=== PATIENT | female | born 1980 | race Caucasian/White ===

== ENCOUNTER 2017-09-27 15:56 | Emergency (ER) | payer OTHER ==
[~2017-09-27] VITALS: Ht 157.5 cm; Wt 123.7 kg
[~2017-09-27 15:56] MED LIST: LEVO200T6 PO; LISI-729 PO; PHEN30CA PO; PREG100C PO; PROC5TAB PO; XNX25 PO; ZLF/100 PO
[2017-09-27 15:58] VITALS: TEMP 36.8; Ht 157.5 cm; Wt 123.7 kg
[2017-09-27] MEDS ORDERED: SODIUM CHLORIDE 0.9% 500ML 500 ML IV STA (16:11)
[2017-09-27] MEDS ORDERED: KETOROLAC TROMETHAMINE 30 MG/ML VIAL IV STA (16:11)
[2017-09-27] MEDS ORDERED: MoRPHine SULFATE 4 MG/ML 1 ML CARP\\VIAL IV STA (16:14)
[2017-09-27 16:33] LABS: BASO % 0.2 %; BASO ABS # 0.02 K/uL (0-0.2); COMPLETE YES; EOS % 2.8 %; HEMATOCRIT 40.5 % (37-47); IG% 0.1 %; LYMPH % 28.6 %; LYMPH ABS # 2.77 K/uL (1.2-3.4); MEAN CELL VOLUME 85.6 fL (80-100); MEAN CORPUSCULAR HEMOGLOBIN 28.8 pg (25-34); MEAN CORPUSCULAR HGB CONC 33.6 g/dl (32-36); MEAN PLATELET VOLUME 10.1 fL (7.4-10.4); MONO % 4.3 %; PLATELET COUNT 303 K/uL (130-400); RED BLOOD COUNT 4.73 M/uL (4.2-5.4); WHITE BLOOD COUNT 9.67 K/uL (4.8-10.8)
[2017-09-27] MEDS ORDERED: PREG1CAP70 PO (16:34)
[2017-09-27] MEDS ORDERED: LSN25 PO (16:34)
[2017-09-27] MEDS ORDERED: CMP5 PO (16:34)
[2017-09-27 16:40] LABS: URINE APPEARANCE CLEAR (CLEAR); URINE BILIRUBIN NEG (NEG); URINE COLOR YELLOW; URINE EPITHELIAL CELL AUTO >30 /lpf (0-5); URINE NITRITE NEG (NEG); URINE SPECIFIC GRAVITY 1.028 (1.000-1.030); UROBILINOGEN NEG (NEG); ZZUR CULT IF INDIC CLEAN CATCH YES
[2017-09-27] MEDS ORDERED: PHEN37.5 PO (16:41)
[2017-09-27] MEDS ORDERED: VORT10TA12 PO (16:41)
[2017-09-27] MEDS ORDERED: MILN50TA PO (16:41)
[2017-09-27 16:46] LABS: MANUAL MICROSCOPIC REQUIRED? NO; REVIEW REQ? NO
[2017-09-27 16:55] LABS: ALT/SGPT 24 U/L (12-78); AST/SGOT 16 U/L (15-37); BLOOD UREA NITROGEN 17 mg/dl (7-18); BUN/CREATININE RATIO 20.5 (10-20); CALCIUM 9.6 mg/dl (8.5-10.1); CARBON DIOXIDE 29 mmol/L (21-32); CHLORIDE 103 mmol/L (98-107); CREATININE 0.85 mg/dl (0.60-1.20); GLUCOSE 98 mg/dl (70-99); POTASSIUM 3.6 mmol/L (3.5-5.1); SODIUM 137 mmol/L (136-145)
[2017-09-27] MEDS ORDERED: HYDR-5688 PO ×2 (16:56)
[2017-09-27 16:58] LABS: ALKALINE PHOSPHATASE 108 U/L (45-117)
[2017-09-27] MEDS ORDERED: CELE1CAP30 PO (17:15)
[2017-09-27] MEDS ORDERED: MRLP527 PO (17:15)
[2017-09-27] MEDS ORDERED: RANI150T2 PO (17:15)
[2017-09-27] MEDS ORDERED: MISCCAP80 PO (17:15)
--- NOTE | 2017-09-27 17:18 | DIAGNOSTIC IMAGING REPORT ---
THORACIC SPINE CT CT DOSE: 1375.35 mGy.cm HISTORY: Lower back pain. TECHNIQUE: Multiaxial CT images of the thoracic spine were performed and reformatted in the sagittal and coronal plane without the use of contrast. A dose lowering technique was utilized adhering to the principles of ALARA. COMPARISON: None. FINDINGS: No fractures of dictation within the thoracic spine. Mild disc space narrowing throughout the thoracic spine. Endplate osteophytes within the lower thoracic spine. Mild right-sided facet degenerative changes within the mid thoracic spine. No significant central canal or neural foraminal narrowing by CT technique. Minimal dextroscoliosis of the midthoracic spine. No pneumothorax. Paraspinal soft tissues are unremarkable. IMPRESSION: No fractures within the thoracic spine. Electronically signed by: Brock Machado M.D. 09/27/2017 5:16 PM Dictated Date/Time: 09/27/2017 5:12 PM
--- NOTE | 2017-09-27 17:36 | DIAGNOSTIC IMAGING REPORT ---
LUMBAR SPINE 5 VIEWS HISTORY: lower thoracic spine pain COMPARISON: Abdomen and pelvis CT 12/23/2015. FINDINGS: There is no fracture. No subluxation. Mild disc space narrowing and small endplate osteophytes throughout the lumbar spine. As also mild facet degenerative changes within the mid to lower lumbar spine. IMPRESSION: No fracture or subluxation within the lumbar spine. Mild degenerative disc disease throughout the lumbar spine. Electronically signed by: Brock Machado M.D. 09/27/2017 5:35 PM Dictated Date/Time: 09/27/2017 5:34 PM
[2017-09-27] MEDS ORDERED: OXYC1TAB3 PO (18:24)
[2017-09-27 18:35] VITALS: BP 149/100; PULSE 75; O2SAT 100
--- NOTE | 2017-09-27 21:37 | EMERGENCY ROOM VISIT NOTE ---
History Report prepared by Kane: Anshu Michelle Under the Supervision of: Dr. Osvaldo Mccain D.O. First contact with patient: 16:01 Chief Complaint: BACK PAIN Stated Complaint: SEVERE MID BACK PAIN/LOWER BACK PAIN History of Present Illness The patient is a 36 year old female who presents to the Emergency Room with complaints of constant mid back pain for the past three weeks which she describes as a shooting stabbing pain. She notes that the pain takes her breath away. Twisting, turning, bending, and general movement makes the pain worse, and the pain wraps around her sides. The patient notes that her last bowel movement was yesterday, she is nauseous, and she states that she is able to walk. She reports that she has a history of lower back issues, though this is different. Pt denies headache, change in vision, fevers, chest pain, nausea, vomiting, diarrhea, pain with urination, melena, weakness, numbness, recent trauma, problems with her bowels or urination, history of cancer, IV drug use. and any recent surgeries. 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 Source of History: patient Onset: three weeks ago Position: back (middle) Quality: stabbing Timing: constant Modifying Factors (Worsening): movement, other (twisting, turning, bending) Associated Symptoms: + nausea Review of Systems See HPI for pertinent positives & negatives. A total of 10 systems reviewed and were otherwise negative. Past Medical & Surgical Medical Problems: (1) Anxiety (2) Constipation (3) Depression (4) Hypertension (5) Hypothyroidism (6) IBS (irritable bowel syndrome) Family History Patient reports no known family medical history. Social History Smoking Status: Never Smoker Alcohol Use: none Marital Status: in relationship Housing Status: lives with family Occupation Status: employed Current/Historical Medications Scheduled Celecoxib (Celecoxib), 200 MG PO BID Hydrocodone/Acetaminophen 5MG/325MG ([place] 5MG/325MG), 1 TABLET PO HS Hydrocodone/Acetaminophen 5MG/325MG ([place] 5MG/325MG), 2 TABLETS PO QAM Levothyroxine Sodium (Levothyroxine Sodium), 200 MCG PO QAM Lisinopril (Lisinopril), 2.5 MG PO DAILY Milnacipran Hcl (Savella), 50 MG PO BID Phentermine Hcl (Phentermine Hcl), 37.5 MG PO DAILY Pregabalin (Lyrica), 150 MG PO BID Probiotic Product (Probiotic), 1 CAP PO QAM Ranitidine HCl (Ranitidine HCl), 150 MG PO BID Vortioxetine HBr (Trintellix), 10 MG PO DAILY Scheduled PRN Oxycodone Immediate Rel Tab (Roxicodone Ir), 5 MG PO Q6H PRN for Pain Polyethylene (Polyethylene Glycol 3350), 17 GM PO DAILY PRN for Constipation Prochlorperazine Maleate (Prochlorperazine Maleate), 5 MG PO TID PRN for Nausea Allergies Coded Allergies: Sulfa Antibiotics (Verified Allergy, Intermediate, rash,hives sob, 05/15/16) Doxycycline (Verified Allergy, Unknown, Rash and Hives, 05/15/16) Reported by PT Meloxicam (Verified Allergy, Unknown, Rash and Hives, 05/15/16) Reported by PT Ondansetron (Verified Allergy, Unknown, Nausea/Vomiting, 05/15/16) Reported by PT Penicillins (Verified Allergy, Unknown, Rash,Hives and difficulty breathing., 05/15/16) Reported by PT Physical Exam Vital Signs Date Time Temp Pulse Resp B/P (MAP) Pulse Ox O2 Delivery O2 Flow Rate FiO2 09/27/17 18:35 75 18 149/100 100 09/27/17 17:47 80 18 132/90 100 Room Air 09/27/17 15:58 36.8 101 18 157/100 99 Room Air Physical Exam GENERAL: Sitting up in bed, alert, well appearing, well nourished, no distress, non-toxic. Holding her lower thoracic region. EYE EXAM: normal conjunctiva. OROPHARYNX: no exudate, no erythema, lips, buccal mucosa, and tongue normal and mucous membranes are moist NECK: supple, no nuchal rigidity, no adenopathy, non-tender LUNGS: Clear to auscultation. Normal chest wall mechanics HEART: no murmurs, S1 normal and S2 normal ABDOMEN: abdomen soft, non-tender, normo-active bowel sounds, no masses, no rebound or guarding. BACK: Mid and bilateral paraspinal tenderness from the mid thoracic region tracking down to the lower thoracic region. Pain worsens with twisting, turning , and bending. SKIN: no rashes and no bruising UPPER EXTREMITIES: upper extremities are grossly normal. LOWER EXTREMITIES: Flexion and extension of the hip, knee, ankle, and EHL are 5/ 5 bilaterally. Able to ambulate without difficulty the length of the hallway. Patellar and Achilles reflex are 1/4 bilaterally. Gross sensations intact. NEURO EXAM: Normal sensorium, cranial nerves II-XII grossly intact, normal speech, no gross weakness of arms. Medical Decision & Procedures ER Provider Diagnostic Interpretation: Radiology results as stated below per my review and the radiologist's interpretation: THORACIC SPINE CT CT DOSE: 1375.35 mGy.cm HISTORY: Lower back pain. TECHNIQUE: Multiaxial CT images of the thoracic spine were performed and reformatted in the sagittal and coronal plane without the use of contrast. A dose lowering technique was utilized adhering to the principles of ALARA. COMPARISON: None. FINDINGS: No fractures of dictation within the thoracic spine. Mild disc space narrowing throughout the thoracic spine. Endplate osteophytes within the lower thoracic spine. Mild right-sided facet degenerative changes within the mid thoracic spine. No significant central canal or neural foraminal narrowing by CT technique. Minimal dextroscoliosis of the midthoracic spine. No pneumothorax. Paraspinal soft tissues are unremarkable. IMPRESSION: No fractures within the thoracic spine. Electronically signed by: Brock Machado M.D. 09/27/2017 5:16 PM Dictated Date/Time: 09/27/2017 5:12 PM LUMBAR SPINE 5 VIEWS HISTORY: lower thoracic spine pain COMPARISON: Abdomen and pelvis CT 12/23/2015. FINDINGS: There is no fracture. No subluxation. Mild disc space narrowing and small endplate osteophytes throughout the lumbar spine. As also mild facet degenerative changes within the mid to lower lumbar spine. IMPRESSION: No fracture or subluxation within the lumbar spine. Mild degenerative disc disease throughout the lumbar spine. Electronically signed by: Brock Machado M.D. 09/27/2017 5:35 PM Dictated Date/Time: 09/27/2017 5:34 PM Laboratory Results 09/27/17 16:20 Red Blood Count 4.73, Mean Corpuscular Volume 85.6, Mean Corpuscular Hemoglobin 28.8, Mean Corpuscular Hemoglobin Concent 33.6, Mean Platelet Volume 10.1, Neutrophils (%) (Auto) 64.0, Lymphocytes (%) (Auto) 28.6, Monocytes (%) (Auto) 4.3, Eosinophils (%) (Auto) 2.8, Basophils (%) (Auto) 0.2, Neutrophils # (Auto) 6.18, Lymphocytes # (Auto) 2.77, Monocytes # (Auto) 0.42, Eosinophils # (Auto) 0.27, Basophils # (Auto) 0.02 09/27/17 16:20 Test 09/27/17 00:00 09/27/17 16:20 Urine Color YELLOW Urine Appearance CLEAR (CLEAR) Urine pH 5.0 (4.5-7.5) Urine Specific [place] 1.028 (1.000-1.030) Urine Protein NEG (NEG) Urine Glucose (UA) NEG (NEG) Urine Ketones NEG (NEG) Urine Occult Blood NEG (NEG) Urine Nitrite NEG (NEG) Urine Bilirubin NEG (NEG) Urine Urobilinogen NEG (NEG) Urine Leukocyte Esterase SMALL (NEG) Urine WBC (Auto) 10-30 /hpf (0-5) Urine RBC (Auto) 5-10 /hpf (0-4) Urine Hyaline Casts (Auto) 5-10 /lpf (0-5) Urine Epithelial Cells (Auto) >30 /lpf (0-5) Urine Bacteria (Auto) 1+ (NEG) Urine Test NEG (NEG) White Blood Count 9.67 K/uL (4.8-10.8) Red Blood Count 4.73 M/uL (4.2-5.4) Hemoglobin 13.6 g/dL (12.0-16.0) Hematocrit 40.5 % (37-47) Mean Corpuscular Volume 85.6 fL (80-100) Mean Corpuscular Hemoglobin 28.8 pg (25-34) Mean Corpuscular Hemoglobin Concent 33.6 g/dl (32-36) Platelet Count 303 K/uL (130-400) Mean Platelet Volume 10.1 fL (7.4-10.4) Neutrophils (%) (Auto) 64.0 % Lymphocytes (%) (Auto) 28.6 % Monocytes (%) (Auto) 4.3 % Eosinophils (%) (Auto) 2.8 % Basophils (%) (Auto) 0.2 % Neutrophils # (Auto) 6.18 K/uL (1.4-6.5) Lymphocytes # (Auto) 2.77 K/uL (1.2-3.4) Monocytes # (Auto) 0.42 K/uL (0.11-0.59) Eosinophils # (Auto) 0.27 K/uL (0-0.5) Basophils # (Auto) 0.02 K/uL (0-0.2) RDW Standard Deviation 46.1 fL (36.4-46.3) RDW Coefficient of Variation 14.8 % (11.5-14.5) Immature Granulocyte % (Auto) 0.1 % Immature Granulocyte # (Auto) 0.01 K/uL (0.00-0.02) Anion Gap 5.0 mmol/L (3-11) Est Creatinine Clear Calc Drug Dose 112.7 ml/min Estimated GFR () 100.7 Estimated GFR (Non- 86.9 BUN/Creatinine Ratio 20.5 (10-20) Calcium Level 9.6 mg/dl (8.5-10.1) Total Bilirubin 0.3 mg/dl (0.2-1) Direct Bilirubin < 0.1 mg/dl (0-0.2) Aspartate Amino Transf (AST/SGOT) 16 U/L (15-37) Alanine Aminotransferase (ALT/SGPT) 24 U/L (12-78) Alkaline Phosphatase 108 U/L (45-117) Total Protein 9.0 gm/dl (6.4-8.2) Albumin 3.9 gm/dl (3.4-5.0) Lipase 124 U/L (73-393) Laboratory results per my review. Medications Administered Medications (Trade) Dose Ordered Sig/Tanisha Route Start Time Stop Time Status Last Admin Dose Admin Sodium Chloride 500 ml @ 999 mls/hr Q31M STAT IV 09/27/17 16:11 09/27/17 16:41 DC 09/27/17 16:29 999 MLS/HR Ketorolac Tromethamine (Toradol Inj) 30 mg NOW STAT IV 09/27/17 16:11 09/27/17 16:13 DC 09/27/17 16:30 30 MG Morphine Sulfate (MoRPHine SULFATE INJ) 4 mg NOW STAT IV 09/27/17 16:14 09/27/17 16:15 DC 09/27/17 17:53 4 MG ED Course ED COURSE: Vital signs were reviewed and showed tachycardia and hypertension The patients medical record was reviewed The above diagnostic studies were performed and reviewed. ED treatments and interventions as stated above. 1601: The patient was evaluated in room C6. A complete history and physical examination was performed. 1611: Toradol 30mg IV, Sodium Chloride 500 ml @ 999 mls/hr IV 1614: Morphine Sulfate 4mg IV 1813: Upon reevaluation, the patient is feeling better.I discussed my findings with the patient and she understands and agrees with the treatment plan. Based on the patients age, coexisting illnesses, exam and lab findings the decision to treat as an outpatient was made. The patient remained stable while under my care. The patient appeared well at the time of discharge. Medical Decision Differential diagnoses includes but is not limited to lumbar radiculopathy, muscle strain, facture, cauda equina, mass, and disc herniation. Patient is a 36-year-old female who presents to ER for pain in the lower back. It is located in the lower thoracic region tracking of the midthoracic. Pain is worse with twisting turning bending. Patient is completely neurologically intact. No signs cauda equina. CBC all BMP, LFTs, bilirubin lipase is unremarkable. UA was contaminated with multiple epithelial cells. was negative. Patient family were updated at bedside. Patient was given IV morphine and Toradol. She was discharged follow-up with PCP. Discussed with Pt concerning signs and symptoms to watch out for. Pt was instructed to follow up with their PCP and discussed with the patient their option to return to the ED at anytime for persistent or worsening symptoms. The appropriate anticipatory guidance and out-patient management, including indications for return to the emergency department, were explained at length to the patient and understood. [place] Drug Monitoring Program Search Results: patient reviewed within database, no issues identified Medication Reconcilliation Current Medication List: was personally reviewed by me Blood Pressure Screening Patient's blood pressure: Elevated blood pressure Blood pressure disposition: Referred to PCP Impression Primary Impression: Musculoskeletal back pain Scribe Attestation The scribe's documentation has been prepared under my direction and personally reviewed by me in its entirety. I confirm that the note above accurately reflects all work, treatment, procedures, and medical decision making performed by me. Departure Information Dispostion Home / Self-Care Prescriptions Oxycodone Immediate Rel Tab (ROXICODONE IR) 5 Mg Tab 5 MG PO Q6H Y for Pain, #10 TAB Prov: Osvaldo Mccain, DO 09/27/17 Referrals Ji Almeida M.D. (MEDICAL) (PCP) Forms HOME CARE DOCUMENTATION FORM, IMPORTANT VISIT INFORMATION Patient Instructions Back Pain - [facility], [facility] Additional Instructions Please follow up with your primary care doctor with in the next 24 hours. Any worsening of your symptoms, please return to the ED immediately. This includes any fevers greater than 100.4, worsening pain, chest pain, shortness breath, persistent nausea, vomiting, weakness or numbness in arms or legs, unable to urinate, unable to move her bowels, unable to eat or drink, or any other concerning signs or symptoms from your standpoint. Please take Colace 100 mg twice a day in combination with Senokot's 10 mg daily if you are taking OxyIR. You were given medications during this visit that will inhibit your ability to drive, operate machinery and work. Please do NOT drive, operate machinery or work for the next 12hrs. You were also given a prescription for a narcotic. While taking this medication you should also not drive, operate machinery and or work.
== END 2017-09-27 18:38 | disposition home or self-care (01) ==
LOC: C.EDB 15:57 → C.EDC 18:38
DX: M54.6 Pain in thoracic spine (principal); M54.5 Low back pain; F32.9 Major depressive disorder, single episode, unspecified; I10 Essential (primary) hypertension; E03.9 Hypothyroidism, unspecified; K58.9 Irritable bowel syndrome, unspecified; Z79.1 Long term (current) use of non-steroidal anti-inflammatories (NSAID); Z79.891 Long term (current) use of opiate analgesic

== ENCOUNTER → 2017-10-15 | Day surgery (SDC) | payer OTHER ==
[2017-10-09 15:04] VITALS: Ht 157.5 cm; Wt 125.0 kg
[~2017-10-15] VITALS: Ht 157.5 cm; Wt 125.0 kg
[~2017-10-15] MED LIST changes: +ATROPINE SULFATE 0.1 MG/ML 5ML SYR IV PRN; +BUPIVACAINE 0.5 % 5 MG/1 ML PF 10ML VIAL ONE; +CELE1CAP30 PO; +CMP5 PO; +DEXAMETHASONE SOD INJ 4 MG/ML VIAL ONE; +EpHEDrine SULFATE INJ 50 MG/ML AMP IV PRN; +FENTANYL CITRATE INJ 50 MCG/1 ML 2 ML VIAL ONE; +HYDR-5688 PO; +LACTATED RINGER'S 1000ML 1,000 ML IV SCH; +LIDO 2%/EPINEPHRINE 1:100000 20 ML VIAL INFIL ONE; +LIDOCAINE HCL 2% 2 ML VIAL (20MG/ML) ONE; -LISI-729 PO; +LSN25 PO; +MIDAZOLAM HCL 1 MG/ML 2ML VIAL ONE; +MILN50TA PO; +MISCCAP80 PO; +MRLP527 PO; +NURSING VERBAL MED ORDER ONE; +ONDANSETRON INJ 2 MG/ML 2 ML VIAL ONE; +OXYC1TAB3 PO; -PHEN30CA PO; -PREG100C PO; +PREG1CAP70 PO; -PROC5TAB PO; +PROPOFOL IV EMULSION 10 MG/ML 20 ML VIAL IV ONE; +RANI150T2 PO; +VORT10TA12 PO; -XNX25 PO; -ZLF/100 PO
--- NOTE | 2017-10-15 09:10 | History & Physical Bridge - [place] ---
H&P Re-Evaluation Bridge Note: I have examined the patient, reviewed the History & Physical and in the interval since the performance of the History & Physical I have noted the following changes of clinical significance: No changes noted
--- NOTE | 2017-10-15 10:01 | [facility] Post Operative Brief Note ---
Immediate Operative Summary Operative Date Oct 15, 2017. Pre-Operative Diagnosis Bilateral Plantar Fasciitis Post-Operative Diagnosis Same Procedure(s) Performed Bilateral Feet Planter Fasciectomy Surgeon Dr. Reddy Boat Garnisher Surgeon(s) None Estimated Blood Loss 10ML Findings consistent w preop dx Specimens None Anesthesia local with MAC Complication(s) None Disposition Recovery Room / PACU VSS and NVSI to b/l LE
[2017-10-15 10:03] VITALS: TEMP 36.5
--- NOTE | 2017-10-15 10:07 | Discharge Instructions ---
Discharge Instructions Date of Service Oct 15, 2017. Visit Reason for Visit: Bilateral Feet Plantar Fasciitis Discharge Discharge Diagnosis / Problem: bilateral plantar fasciitis Discharge Goals Goal(s): Improve function Medications Stopped Medications Name(s): celebrex stopped 6 days ago Activity Recommendations Activity Limitations: resume your previous activity Lifting Limitations: none Exercise/Sports Limitations: none Shower/Bathe: keep incision dry Weightbearing Status: Left weightbearing (as tolerated), Right weightbearing ( as tolerated) No driving until fu in office Anesthesia . Post Anesthesia Instructions: If you have had General Anesthesia or IV Sedation: * Do not drive today. * Resume driving when surgeon permits. * Do not make important decisions or sign legal documents today. * Call surgeon for: 1. Temperature elevations greater than 101 degrees F. 2. Uncontrollable pain. 3. Excessive bleeding. 4. Persistent nausea and vomiting. 5. Medication intolerance (nausea, vomiting or rash). * For nausea and vomiting use only clear liquids such as: tea, soda, bouillon until nausea subsides, then gradually increase diet as tolerated. * If you have any concerns or questions, call your surgeon's office. If physician is unavailable and it is an emergency, call 911 or go to the nearest emergency room. . Diet Recommendations Recommended Home Diet: no limitations, resume previous diet Procedures Procedures Performed: Bilateral Feet Planter Fasciectomy Pending Studies Studies pending at discharge: no Medical Emergencies . Who to Call and When: Medical Emergencies: If at any time you feel your situation is an emergency, please call 911 immediately. . Non-Emergent Contact Non-Emergency issues call your: Surgeon Call Non-Emergent contact if: you have a fever, temperature is above 101.5, your pain is not controlled, wound has increased drainage, wound has increased redness, wound has increased pain . Past History Medical & Surgical History: (1) Kidney stone (2) Renal colic (3) Nausea vomiting and diarrhea (4) Musculoskeletal back pain (5) Hypertension (6) Hypothyroidism (7) IBS (irritable bowel syndrome) (8) Constipation (9) Depression (10) Anxiety . "Provider Documentation" section prepared by Tc Reddy. .
--- NOTE | 2017-10-15 10:55 | Anesthesia Progress Nt - [facility] ---
Anesthesia Post Op Note Date & Time Oct 15, 2017 at 10:55 Vital Signs Pain Intensity: 0 Vital Signs Past 12 Hours Date Time Temp Pulse Resp B/P (MAP) Pulse Ox O2 Delivery O2 Flow Rate FiO2 10/15/17 10:03 36.5 78 16 111/75 (87) 98 Room Air 10/15/17 08:00 36.8 87 16 99 Room Air Notes Mental Status: alert / awake / arousable, participated in evaluation Pt Amnestic to Procedure: Yes Nausea / Vomiting: adequately controlled Pain: adequately controlled Airway Patency, RR, SpO2: stable & adequate BP & HR: stable & adequate Hydration State: stable & adequate Anesthetic Complications: no major complications apparent
--- NOTE | 2017-10-15 10:58 | [facility] Operative Report ---
Operative Report Operative Date Oct 15, 2017. Pre-Operative Diagnosis Bilateral Plantar Fasciitis Post-Operative Diagnosis Same Procedure(s) Performed Bilateral plantar fascia release Surgeon Dr. Reddy Lab Rep Surgeon(s) None Estimated Blood Loss 10ML Findings consistent w/ preoperative dx Specimens None Anesthesia MAC w/ local field block Complication(s) None Disposition Recovery Room / PACU Description of Procedure Patient has failed outpatinet conservative therapy for the bilateral plantar fasciitis by one of my partners. Please see last clinic note for full HPI. All RBCA were explained and she elects to proceed. Patient was taken from the preoperative holding area to the operating room and placed on the table in the normal supine position. The bilateral feet and ankles were then identified. After induction of MAC anesthesia a local field block was performed to the bilateral medial calcaneal tubercle. 2% lidocaine with epinephrine was used to total 20 cc were used, 10 cc in each foot. At this time the bilateral lower extremities were prepped and draped in the normal sterile flap fashion using ChloraPrep. Attention was directed to the right medial calcaneal tubercle where an incision was made and drawn over the medial calcaneal tubercle. Dissection was carried down to the level of the medial calcaneal tubercle which is identified. A hemostat and periosteal elevator were used to free up the medial band of plantar fascial tissue. After identification band was incised with a #15 blade. Care was taken to avoid all neurovascular structures. Adequate release was noted in check with dorsiflexion of the hallux. The incision site was then flushed with copious amounts of normal sterile saline. Site was closed with 4-0 nylon. Attention was directed to the left medial calcaneal tubercle where an incision was made and drawn over the medial calcaneal tubercle. Dissection was carried down to the level of the medial calcaneal tubercle which is identified. A hemostat and periosteal elevator were used to free up the medial band of plantar fascial tissue. After identification band was incised with a #15 blade. Care was taken to avoid all neurovascular structures. Adequate release was noted in check with dorsiflexion of the hallux. The incision site was then flushed with copious amounts of normal sterile saline. Site was closed with 4-0 nylon. Patient tolerated the anesthesia and procedure well. Patient left the operating room with vital signs stable and neurovascular status intact to the bilateral lower extremity. I attest to the content of the Intraoperative Record and any orders documented therein. Any exceptions are noted below.
[2017-10-15 11:15] VITALS: BP 118/77; PULSE 86; O2SAT 99
== END | disposition home or self-care (01) ==
LOC: X.SURG 07:34
PROVIDERS: ATTEND Podiatrist
DX: M72.2 Plantar fascial fibromatosis (principal); E66.9 Obesity, unspecified; I10 Essential (primary) hypertension; G47.33 Obstructive sleep apnea (adult) (pediatric); K21.9 Gastro-esophageal reflux disease without esophagitis; E03.9 Hypothyroidism, unspecified; Z88.0 Allergy status to penicillin; Z88.2 Allergy status to sulfonamides; Z82.49 Family history of ischemic heart disease and other diseases of the circulatory system; Z80.3 Family history of malignant neoplasm of breast; Z80.1 Family history of malignant neoplasm of trachea, bronchus and lung; Z68.42 Body mass index [BMI] 45.0-49.9, adult; Z90.89 Acquired absence of other organs

== ENCOUNTER 2017-12-17 17:53 | Inpatient (IN) | payer OTHER ==
[~2017-12-17] VITALS: Ht 157.5 cm; Wt 125.4 kg
[~2017-12-17 17:53] MED LIST changes: -ALBUT/IPRATROP 3MG/0.5MG NEB 3 ML VIAL INH SCH; -ALBUTEROL HFA INHALER 8.5 GM INH ONE; -ALPR0.25 PO; -AZITTAB PO; -LIDOCAINE HCL 2% 2 ML VIAL (20MG/ML) ONE; -OMEP20TA PO; -PROPOFOL IV EMULSION 10 MG/ML 20 ML VIAL IV ONE; -SODIUM CHLORIDE 0.9% 500ML 500 ML IV ONE
[2017-12-17] MEDS ORDERED: ONDANSETRON INJ 2 MG/ML 2 ML VIAL IV STA ×2 (17:57→19:36)
[2017-12-17] MEDS ORDERED: SODIUM CHLORIDE 0.9% 1000ML 1,000 ML IV STA ×2 (17:57→19:36)
[2017-12-17] MEDS ORDERED: ALBUTEROL 0.5% NEB SOLN 2.5 MG/0.5 ML VIAL INH STA (17:57)
--- NOTE | 2017-12-17 18:20 | DIAGNOSTIC IMAGING REPORT ---
SINGLE VIEW CHEST CLINICAL HISTORY: Atypical chest pain. FINDINGS: An AP, portable, upright chest radiograph is obtained. No prior studies are available for comparison at the time of dictation. The examination is degraded by portable technique and patient rotation. The cardiomediastinal silhouette is unremarkable. The lungs and pleural spaces are clear. No pneumothorax is seen. The bony thorax is grossly intact. IMPRESSION: No active disease in the chest. Electronically signed by: Filippo Patterson M.D. 12/17/2017 6:19 PM Dictated Date/Time: 12/17/2017 6:19 PM
[2017-12-17 18:34] LABS: BASO % 0.2 %; BASO ABS # 0.02 K/uL (0-0.2); EOS % 0.1 %; EOS ABS # 0.01 K/uL (0-0.5); HEMATOCRIT 38.8 % (37-47); IG# 0.02 K/uL (0.00-0.02); LYMPH % 5.7 %; LYMPH ABS # 0.75 K/uL (1.2-3.4); MEAN CELL VOLUME 85.7 fL (80-100); MEAN CORPUSCULAR HEMOGLOBIN 28.7 pg (25-34); MEAN CORPUSCULAR HGB CONC 33.5 g/dl (32-36); MEAN PLATELET VOLUME 10.1 fL (7.4-10.4); MONO % 2.9 %; MONO ABS # 0.38 K/uL (0.11-0.59); NEUT % 90.9 %; NEUT ABS # 11.88 K/uL (1.4-6.5); PLATELET COUNT 257 K/uL (130-400); RED CELL DISTRIBUTION WIDTH CV 15.2 % (11.5-14.5); RED CELL DISTRIBUTION WIDTH SD 47.6 fL (36.4-46.3); WHITE BLOOD COUNT 13.06 K/uL (4.8-10.8)
[2017-12-17 18:52] LABS: BLOOD UREA NITROGEN 15 mg/dl (7-18); CALCIUM 9.1 mg/dl (8.5-10.1); CARBON DIOXIDE 23 mmol/L (21-32); GLUCOSE 202 mg/dl (70-99); POTASSIUM 4.1 mmol/L (3.5-5.1); SODIUM 136 mmol/L (136-145)
[2017-12-17 18:57] LABS: CKMB < 0.5 ng/ml (0.5-3.6)
[2017-12-17] MEDS ORDERED: MoRPHine SULFATE 10 MG/ML CARP/VIAL IV STA (19:36)
[2017-12-17] MEDS ORDERED: ACETAMINOPHEN 325 MG TAB PO PRN (21:00)
[2017-12-17] MEDS ORDERED: MAGNESIUM HYDROXIDE SUSP 30 ML UDC PO PRN (21:00)
[2017-12-17 21:08] LABS: ALBUMIN 3.4 gm/dl (3.4-5.0); ALKALINE PHOSPHATASE 93 U/L (45-117); ALT/SGPT 28 U/L (12-78); AST/SGOT 17 U/L (15-37); LIPASE 105 U/L (73-393); TOTAL PROTEIN 8.1 gm/dl (6.4-8.2)
[2017-12-17] MEDS ORDERED: AZTREONAM 2000 MG in DEXTROSE 5% 100 ML IV STA (21:09)
[2017-12-17] MEDS ORDERED: VANCOMYCIN INJ 2,750 MG in SODIUM CHLORIDE 0.9% 500ML 500 ML IV STA (21:09)
[2017-12-17] MEDS ORDERED: ACETAMINOPHEN 325 MG TAB ONE (21:13)
[2017-12-17] MEDS ORDERED: OPTIRAY 320 IV PRN (21:15)
[2017-12-17] MEDS ORDERED: ALPR0.25 PO (21:33)
[2017-12-17] MEDS ORDERED: ALPRAZOLAM 0.25 MG TAB PO PRN (21:45)
[2017-12-17] MEDS ORDERED: PROCHLORPERAZINE MALEATE 5 MG TAB PO PRN (21:45)
[2017-12-17] MEDS ORDERED: HYDROCODONE/ACETAMIN 5/325MG TAB PO SCH (21:45)
[2017-12-17] MEDS ORDERED: VANCOMYCIN CONSULT ACTIVE PRN (21:47)
--- NOTE | 2017-12-17 21:47 | History and Physical ---
History & Physical Date & Time of Service: Dec 17, 2017 at 21:35 Chief Complaint: Doug Pain, Coughing, Fever Primary Care Physician: Ji Almeida M.D. (MEDICAL) History of Present Illness Source: patient, clinic records, hospital records The patient is a 37-year-old female who presents to the emergency room via EMS with complaints of constant chest pain and abdominal pain beginning earlier today following an upper endoscopy. The patient states that after the procedure she began to cough uncontrollably and was unable to speak. She was given a DuoNeb treatment with inhalers and sent home. When she got home she continued to cough and developed chest pain trouble breathing and abdominal pain. She describes her chest pain as a soreness. She reports vomiting one time prior to arrival to the ER. Vomitus was described as mucousy without blood. She has no history of asthma or COPD. The endoscopy was performed for chronic bloating and abdominal pain. She reports her abdominal pain and chest pain are improved since the breathing treatment. She does report a headache likely secondary to the excessive coughing. The coughing and difficulty breathing have improved. She is not in respiratory distress at this time. She does report fevers and chills that began shortly after arriving home today. She reports that when she got home her shortness of breath became worse and her chest pain felt tighter wrapping around her shoulder blades. She denies a history of blood clot but does report a history of multiple spontaneous abortions. Review of system reveals chronic constipation. She denies diarrhea or blood per rectum. She reports irregular menstruation with last menstrual period in October 2017. She denies any vaginal discharge or urinary tract infection symptoms such as dysuria urgency or flank pain. Prior to the procedure she was in her normal state of health. Past Medical/Surgical History Medical Problems: (1) Anxiety Status: Chronic (2) Aldana esophagus Status: Chronic (3) Constipation Status: Chronic (4) Depression Status: Chronic (5) Diastolic dysfunction Status: Chronic (6) Fibromyalgia Status: Chronic (7) HTN (hypertension) Status: Chronic (8) Hyperhidrosis Status: Chronic (9) Hypertension Status: Chronic (10) Hypothyroidism Status: Chronic (11) IBS (irritable bowel syndrome) Status: Chronic (12) Low back pain Status: Chronic (13) Lupus Status: Chronic (14) Menometrorrhagia Status: Chronic (15) JOHNSON (obstructive sleep apnea) Permanent Comment: intolerant of CPAP mask Status: Chronic (16) PCOS (polycystic ovarian syndrome) Status: Chronic (17) Plantar fascial fibromatosis of both feet Status: Chronic (18) Ureteral calculus Status: Chronic Surgical Problems: (1) S/P bilateral breast reduction Status: Chronic (2) S/P D&C (status post dilation and curettage) Status: Chronic (3) S/P T&A (status post tonsillectomy and adenoidectomy) Status: Chronic (4) Status post third molar tooth extraction Status: Chronic Family History Cancer Diabetes mellitus FH: cancer FH: lung disease Heart disease Hypertension Social History Smoking Status: Never Smoker Smokeless Tobacco Use: No Alcohol Use: socially Drug Use: none Marital Status: , in relationship Housing status: lives with significant other Occupational Status: unemployed Immunizations History of Influenza Vaccine: Unknown History of Tetanus Vaccine?: Yes Tetanus Immunization Date: Aug 11, 2009 History of Pneumococcal: Unknown History of Hepatitis B Vaccine: Unknown Allergies Coded Allergies: Sulfa Antibiotics (Verified Allergy, Intermediate, rash,hives sob, 12/12/17) Vancomycin (Verified Allergy, Intermediate, rash, 12/18/17) Doxycycline (Verified Allergy, Unknown, Rash and Hives, 12/12/17) Reported by PT Meloxicam (Verified Allergy, Unknown, Rash and Hives, 12/12/17) Reported by PT Ondansetron (Verified Allergy, Unknown, Nausea/Vomiting, 12/12/17) Reported by PT Penicillins (Verified Allergy, Unknown, Rash,Hives and difficulty breathing., 12/12/17) Reported by PT Home Medications Scheduled Hydrocodone/Acetaminophen 5MG/325MG (Edgar 5MG/325MG), 1 TABLET PO HS Hydrocodone/Acetaminophen 5MG/325MG (Edgar 5MG/325MG), 2 TABLETS PO QAM Levothyroxine Sodium (Levothyroxine Sodium), 200 MCG PO QAM Lisinopril (Lisinopril), 2.5 MG PO QAM Milnacipran Hcl (Savella), 50 MG PO BID Pregabalin (Lyrica), 150 MG PO BID Probiotic Product (Probiotic), 1 CAP PO QAM Ranitidine HCl (Ranitidine HCl), 150 MG PO BID Vortioxetine HBr (Trintellix), 2 TAB PO QAM Scheduled PRN Alprazolam (Xanax), 1 TAB PO TID PRN for Anxiety/Agitation Polyethylene (Polyethylene Glycol 3350), 17 GM PO DAILY PRN for Constipation Prochlorperazine Maleate (Prochlorperazine Maleate), 5 MG PO TID PRN for Nausea Review of Systems At least ten systems were reviewed and negative except as indicated in HPI. Physical Exam Vital Signs Date Time Temp Pulse Resp B/P (MAP) Pulse Ox O2 Delivery O2 Flow Rate FiO2 12/17/17 19:33 37.9 130 18 134/84 94 Room Air 12/17/17 18:56 37.7 123 18 138/85 95 Room Air 12/17/17 18:11 139 12/17/17 17:56 Room Air 12/17/17 17:56 38.1 140 22 156/100 98 Room Air General Appearance: no apparent distress, + obese, + pertinent finding ( diaphoretic and flushed, no rash) Head: normocephalic, atraumatic Eyes: normal inspection, PERRL, sclerae normal ENT: normal ENT inspection, pharynx normal, + pertinent finding (cerumen bilaterally prevented visualization of TMs. 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, no motor/sensory deficits, alert, normal mood/affect, oriented x 3 Skin: normal color, warm/dry, no rash Diagnostics Laboratory Results 12/17/17 18:11 Red Blood Count 4.53, Mean Corpuscular Volume 85.7, Mean Corpuscular Hemoglobin 28.7, Mean Corpuscular Hemoglobin Concent 33.5, Mean Platelet Volume 10.1, Neutrophils (%) (Auto) 90.9, Lymphocytes (%) (Auto) 5.7, Monocytes (%) (Auto) 2.9, Eosinophils (%) (Auto) 0.1, Basophils (%) (Auto) 0.2, Neutrophils # (Auto) 11.88, Lymphocytes # (Auto) 0.75, Monocytes # (Auto) 0.38, Eosinophils # (Auto) 0.01, Basophils # (Auto) 0.02 12/17/17 18:11 Test 12/17/17 18:11 12/17/17 20:45 12/17/17 21:16 White Blood Count 13.06 K/uL (4.8-10.8) Red Blood Count 4.53 M/uL (4.2-5.4) Hemoglobin 13.0 g/dL (12.0-16.0) Hematocrit 38.8 % (37-47) Mean Corpuscular Volume 85.7 fL (80-100) Mean Corpuscular Hemoglobin 28.7 pg (25-34) Mean Corpuscular Hemoglobin Concent 33.5 g/dl (32-36) Platelet Count 257 K/uL (130-400) Mean Platelet Volume 10.1 fL (7.4-10.4) Neutrophils (%) (Auto) 90.9 % Lymphocytes (%) (Auto) 5.7 % Monocytes (%) (Auto) 2.9 % Eosinophils (%) (Auto) 0.1 % Basophils (%) (Auto) 0.2 % Neutrophils # (Auto) 11.88 K/uL (1.4-6.5) Lymphocytes # (Auto) 0.75 K/uL (1.2-3.4) Monocytes # (Auto) 0.38 K/uL (0.11-0.59) Eosinophils # (Auto) 0.01 K/uL (0-0.5) Basophils # (Auto) 0.02 K/uL (0-0.2) RDW Standard Deviation 47.6 fL (36.4-46.3) RDW Coefficient of Variation 15.2 % (11.5-14.5) Immature Granulocyte % (Auto) 0.2 % Immature Granulocyte # (Auto) 0.02 K/uL (0.00-0.02) Anion Gap 8.0 mmol/L (3-11) Est Creatinine Clear Calc Drug Dose 95.5 ml/min Estimated GFR () 82.2 Estimated GFR (Non- 70.9 BUN/Creatinine Ratio 15.2 (10-20) Calcium Level 9.1 mg/dl (8.5-10.1) Total Bilirubin 0.3 mg/dl (0.2-1) Direct Bilirubin < 0.1 mg/dl (0-0.2) Aspartate Amino Transf (AST/SGOT) 17 U/L (15-37) Alanine Aminotransferase (ALT/SGPT) 28 U/L (12-78) Alkaline Phosphatase 93 U/L (45-117) Total Creatine Kinase 58 U/L (26-192) Creatine Kinase MB < 0.5 ng/ml (0.5-3.6) Creatine Kinase MB Ratio (0-3.0) Total Protein 8.1 gm/dl (6.4-8.2) Albumin 3.4 gm/dl (3.4-5.0) Lipase 105 U/L (73-393) Urine Test NEG (NEG) Prothrombin Time 10.1 SECONDS (9.0-12.0) Prothromb Time International Ratio 1.0 (0.9-1.1) Date/Time Source Procedure Growth Status 12/17/17 21:25 Blood Blood Culture Pending Received 12/17/17 20:45 Urine , Clean Catch Urine Culture Pending Received Results Past 24 Hours Test 12/17/17 18:11 12/17/17 20:45 12/17/17 21:16 Range/Units White Blood Count 13.06 4.8-10.8 K/uL Red Blood Count 4.53 4.2-5.4 M/uL Hemoglobin 13.0 12.0-16.0 g/dL Hematocrit 38.8 37-47 % Mean Corpuscular Volume 85.7 80-100 fL Mean Corpuscular Hemoglobin 28.7 25-34 pg Mean Corpuscular Hemoglobin Concent 33.5 32-36 g/dl Platelet Count 257 130-400 K/uL Mean Platelet Volume 10.1 7.4-10.4 fL Neutrophils (%) (Auto) 90.9 % Lymphocytes (%) (Auto) 5.7 % Monocytes (%) (Auto) 2.9 % Eosinophils (%) (Auto) 0.1 % Basophils (%) (Auto) 0.2 % Neutrophils # (Auto) 11.88 1.4-6.5 K/uL Lymphocytes # (Auto) 0.75 1.2-3.4 K/uL Monocytes # (Auto) 0.38 0.11-0.59 K/uL Eosinophils # (Auto) 0.01 0-0.5 K/uL Basophils # (Auto) 0.02 0-0.2 K/uL RDW Standard Deviation 47.6 36.4-46.3 fL RDW Coefficient of Variation 15.2 11.5-14.5 % Immature Granulocyte % (Auto) 0.2 % Immature Granulocyte # (Auto) 0.02 0.00-0.02 K/uL Sodium Level 136 136-145 mmol/L Potassium Level 4.1 3.5-5.1 mmol/L Chloride Level 105 98-107 mmol/L Carbon Dioxide Level 23 21-32 mmol/L Anion Gap 8.0 3-11 mmol/L Blood Urea Nitrogen 15 7-18 mg/dl Creatinine 1.00 0.60-1.20 mg/dl Est Creatinine Clear Calc Drug Dose 95.5 ml/min Estimated GFR () 82.2 Estimated GFR (Non- 70.9 BUN/Creatinine Ratio 15.2 10-20 Random Glucose 202 70-99 mg/dl Calcium Level 9.1 8.5-10.1 mg/dl Total Bilirubin 0.3 0.2-1 mg/dl Direct Bilirubin < 0.1 0-0.2 mg/dl Aspartate Amino Transf (AST/SGOT) 17 15-37 U/L Alanine Aminotransferase (ALT/SGPT) 28 12-78 U/L Alkaline Phosphatase 93 45-117 U/L Total Creatine Kinase 58 26-192 U/L Creatine Kinase MB < 0.5 0.5-3.6 ng/ml Creatine Kinase MB Ratio 0-3.0 Troponin I < 0.015 0-0.045 ng/ml Total Protein 8.1 6.4-8.2 gm/dl Albumin 3.4 3.4-5.0 gm/dl Lipase 105 73-393 U/L Urine Test NEG NEG Prothrombin Time 10.1 9.0-12.0 SECONDS Prothromb Time International Ratio 1.0 0.9-1.1 Microbiology Results 12/17/17 Blood Culture, Received Pending 12/17/17 Blood Culture, Ordered Pending 12/17/17 Urine Culture, Received Pending Diagnostic Radiology SINGLE VIEW CHEST CLINICAL HISTORY: Atypical chest pain. FINDINGS: An AP, portable, upright chest radiograph is obtained. No prior studies are available for comparison at the time of dictation. The examination is degraded by portable technique and patient rotation. The cardiomediastinal silhouette is unremarkable. The lungs and pleural spaces are clear. No pneumothorax is seen. The bony thorax is grossly intact. IMPRESSION: No active disease in the chest. EKG ST 125 Impression Assessment and Plan 37-year-old female presents with acute onset fever chills tachycardia chest pain and shortness of breath status post upper endoscopy earlier today. 1. Sepsis-fever, tachycardia, and white count present. Patient is ill- appearing. Differential diagnosis includes but is not limited to allergic reaction to Keflex given earlier today with known history of cephalosporin allergy, possible aspiration pneumonia, pulmonary embolism, viral infection such as flu, other infection such as UTI, or complication such as per microperforation from procedure earlier today. Blood cultures are pending, lactate pending. Will cover with broad-spectrum antibiotics to include vancomycin and aztreonam. CT chest to rule out PE. Flu PCR. Continue IV fluids overnight. Urinalysis. Consult GI. 2. Chronic pain and fibromyalgia-continue Edgar per home regimen. 3. Anxiety continue Savella, Xanax, Lyrica, Trintellix DVT proph- Lovenox Full Code Dispo-tele ADDENDUM: Overnight patient had allergic reaction to vancomycin in the form of the rash without hives. Benadryl was given and vancomycin was added to allergy list. Daptomycin is a replacement alternative for gram-positive coverage. Continuing aztreonam for now with consideration of dapto per primary team in the morning. Desirae De Leon DO [facility] hospitalist Resuscitation Status VTE Prophylaxis Will order VTE Prophylaxis: Yes
--- NOTE | 2017-12-17 21:58 | DIAGNOSTIC IMAGING REPORT ---
CT ANGIOGRAM OF THE CHEST CLINICAL HISTORY: Atypical chest pain. COMPARISON STUDY: Chest x-ray dated 12/17/2017 TECHNIQUE: Following the IV administration of 103 cc of Optiray 320, CT angiogram of the chest was performed from the upper abdomen to the thoracic inlet utilizing the pulmonary embolus protocol. Images are reviewed in the axial, sagittal, and coronal planes. 3-D MIPS images are created and assessed. IV contrast was administered without complication. A dose lowering technique was utilized adhering to the principles of ALARA. The examination is significantly degraded by motion artifact. CT DOSE: 649.32 mGy.cm FINDINGS: Thyroid: Atrophic. Thoracic aorta: The thoracic aorta is normal in caliber and demonstrates standard 3-vessel arch anatomy. No dissection is seen. Pulmonary vasculature: The pulmonary trunk is normal in caliber. There are no filling defects identified in main, lobar, or proximal segmental pulmonary branches to suggest pulmonary embolus. Evaluation of the peripheral vessels is degraded by motion artifact. Heart: The heart is normal in size and configuration, and without pericardial effusion. Lungs and pleural spaces: Evaluation of the lung parenchyma is degraded by respiratory motion artifact. No airspace consolidation or pleural effusion is identified. Linear atelectasis is seen in the left lung base. The trachea and central airways are clear. Mediastinum: There is no mediastinal lymphadenopathy. Isaura: Clear. Axillae: There is no axillary lymphadenopathy. Upper abdomen: The liver is steatotic. The spleen is enlarged, measuring 15.3 cm in length. A tiny hiatal hernia is noted. Skeletal structures: No lytic or blastic bony lesions are seen. IMPRESSION: 1. Motion compromised examination. 2. There is no evidence of central pulmonary embolus in the main, lobar, or proximal segmental pulmonary arteries. 3. The lungs are clear. 4. Hepatic steatosis. 5. Splenomegaly. Electronically signed by: Filippo Patterson M.D. 12/17/2017 9:57 PM Dictated Date/Time: 12/17/2017 9:54 PM
[2017-12-17 22:13] VITALS: BP 122/79; PULSE 112; TEMP 36.9; O2SAT 93; Ht 157.5 cm; Wt 125.4 kg
[2017-12-17] MEDS ORDERED: AZTREONAM CONSULT ACTIVE PRN (22:30)
[2017-12-17 22:51] LABS: INFLUENZA A PCR Neg for Influ A (NEG); INFLUENZA B PCR Neg for Influ B (NEG)
[2017-12-17] MEDS ORDERED: SODIUM CHLORIDE 0.9% 1000ML 1,000 ML IV SCH (23:00)
[2017-12-17 23:35] VITALS: BP 129/81; PULSE 98; TEMP 36.8; O2SAT 95
[2017-12-17] MEDS: RANITIDINE HCL 150 MG TAB PO SCH (23:49)
[2017-12-17] MEDS: PREGABALIN 150 MG CAP PO SCH (23:49)
--- NOTE | 2017-12-18 | EMERGENCY ROOM VISIT NOTE ---
History Report prepared by Kane: Sameer Rodriguez Under the Supervision of: Dr. Cherri Parsons D.O. First contact with patient: 17:53 Chief Complaint: CHEST PAIN Stated Complaint: BETY PAIN, COUGHING, FEVER History of Present Illness The patient is a 37 year old female who presents to the Emergency Room via EMS with complaints of constant chest and abdominal pain that began earlier today following an EGD. Per EMS the patient had an EGD performed here at [facility] at 1100 this morning, 7 hours prior to arrival. After the procedure the patient began to cough uncontrollably and was unable to speak. They gave her a Duoneb Treatment with inhalers and sent her home. When she got home she continued to cough and developed the chest and abdominal pain. She describes her chest pain as a soreness. EMS adds that she did vomit just prior to their arrival. She has no history of asthma or COPD. The scope today was performed for bloating and abdominal pain. She had a scope performed 7 years ago without any complications. This prior study showed some inflammation of her stomach. 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 A total of 10 systems reviewed and were otherwise negative. Past Medical & Surgical Medical Problems: (1) Anxiety (2) Constipation (3) Depression (4) Fever and chills (5) Hypertension (6) Hypothyroidism (7) IBS (irritable bowel syndrome) Family History Cancer Diabetes mellitus FH: cancer FH: lung disease Heart disease Hypertension Social History Drug Use: none Marital Status: in relationship Housing Status: lives with family Occupation Status: unemployed Current/Historical Medications Scheduled Hydrocodone/Acetaminophen 5MG/325MG ([place] 5MG/325MG), 1 TABLET PO HS Hydrocodone/Acetaminophen 5MG/325MG ([place] 5MG/325MG), 2 TABLETS PO QAM Levothyroxine Sodium (Levothyroxine Sodium), 200 MCG PO QAM Lisinopril (Lisinopril), 2.5 MG PO QAM Milnacipran Hcl (Savella), 50 MG PO BID Pregabalin (Lyrica), 150 MG PO BID Probiotic Product (Probiotic), 1 CAP PO QAM Ranitidine HCl (Ranitidine HCl), 150 MG PO BID Vortioxetine HBr (Trintellix), 2 TAB PO QAM Scheduled PRN Alprazolam (Xanax), 1 TAB PO TID PRN for Anxiety/Agitation Polyethylene (Polyethylene Glycol 3350), 17 GM PO DAILY PRN for Constipation Prochlorperazine Maleate (Prochlorperazine Maleate), 5 MG PO TID PRN for Nausea Allergies Coded Allergies: Sulfa Antibiotics (Verified Allergy, Intermediate, rash,hives sob, 12/12/17) Doxycycline (Verified Allergy, Unknown, Rash and Hives, 12/12/17) Reported by PT Meloxicam (Verified Allergy, Unknown, Rash and Hives, 12/12/17) Reported by PT Ondansetron (Verified Allergy, Unknown, Nausea/Vomiting, 12/12/17) Reported by PT Penicillins (Verified Allergy, Unknown, Rash,Hives and difficulty breathing., 12/12/17) Reported by PT Physical Exam Vital Signs Date Time Temp Pulse Resp B/P (MAP) Pulse Ox O2 Delivery O2 Flow Rate FiO2 12/17/17 19:33 37.9 130 18 134/84 94 Room Air 12/17/17 18:56 37.7 123 18 138/85 95 Room Air 12/17/17 18:11 139 12/17/17 17:56 Room Air 12/17/17 17:56 38.1 140 22 156/100 98 Room Air Physical Exam GENERAL: Sitting up in bed, alert, well appearing, well nourished, no distress, non-toxic. Patient is talking in full sentences. EYE EXAM: normal conjunctiva. OROPHARYNX: no exudate, no erythema, lips, buccal mucosa, and tongue normal and mucous membranes are moist NECK: supple, no nuchal rigidity, no adenopathy, non-tender LUNGS: Faint Expiratory wheezes bilaterally. Normal chest wall mechanics HEART: no murmurs, S1 normal and S2 normal CHEST: There is acute reproducible anterior chest wall pain. ABDOMEN: abdomen soft, non-tender, normo-active bowel sounds, no masses, no rebound or guarding. BACK: Back is symmetrical on inspection and there is no deformity, no midline tenderness, no CVA tenderness. SKIN: no rashes and no bruising UPPER EXTREMITIES: upper extremities are grossly normal. LOWER EXTREMITIES: No pitting edema. NEURO EXAM: Normal sensorium, cranial nerves II-XII grossly intact, normal speech, no gross weakness of arms, no gross weakness of legs. Medical Decision & Procedures ER Provider Diagnostic Interpretation: Radiology results as stated below per my review and the radiologist's interpretation: SINGLE VIEW CHEST CLINICAL HISTORY: Atypical chest pain. FINDINGS: An AP, portable, upright chest radiograph is obtained. No prior studies are available for comparison at the time of dictation. The examination is degraded by portable technique and patient rotation. The cardiomediastinal silhouette is unremarkable. The lungs and pleural spaces are clear. No pneumothorax is seen. The bony thorax is grossly intact. IMPRESSION: No active disease in the chest. Electronically signed by: Filippo Patterson M.D. 12/17/2017 6:19 PM Dictated Date/Time: 12/17/2017 6:19 PM Laboratory Results 12/17/17 18:11 Red Blood Count 4.53, Mean Corpuscular Volume 85.7, Mean Corpuscular Hemoglobin 28.7, Mean Corpuscular Hemoglobin Concent 33.5, Mean Platelet Volume 10.1, Neutrophils (%) (Auto) 90.9, Lymphocytes (%) (Auto) 5.7, Monocytes (%) (Auto) 2.9, Eosinophils (%) (Auto) 0.1, Basophils (%) (Auto) 0.2, Neutrophils # (Auto) 11.88, Lymphocytes # (Auto) 0.75, Monocytes # (Auto) 0.38, Eosinophils # (Auto) 0.01, Basophils # (Auto) 0.02 12/17/17 18:11 Test 12/17/17 18:11 12/17/17 20:45 White Blood Count 13.06 K/uL (4.8-10.8) Red Blood Count 4.53 M/uL (4.2-5.4) Hemoglobin 13.0 g/dL (12.0-16.0) Hematocrit 38.8 % (37-47) Mean Corpuscular Volume 85.7 fL (80-100) Mean Corpuscular Hemoglobin 28.7 pg (25-34) Mean Corpuscular Hemoglobin Concent 33.5 g/dl (32-36) Platelet Count 257 K/uL (130-400) Mean Platelet Volume 10.1 fL (7.4-10.4) Neutrophils (%) (Auto) 90.9 % Lymphocytes (%) (Auto) 5.7 % Monocytes (%) (Auto) 2.9 % Eosinophils (%) (Auto) 0.1 % Basophils (%) (Auto) 0.2 % Neutrophils # (Auto) 11.88 K/uL (1.4-6.5) Lymphocytes # (Auto) 0.75 K/uL (1.2-3.4) Monocytes # (Auto) 0.38 K/uL (0.11-0.59) Eosinophils # (Auto) 0.01 K/uL (0-0.5) Basophils # (Auto) 0.02 K/uL (0-0.2) RDW Standard Deviation 47.6 fL (36.4-46.3) RDW Coefficient of Variation 15.2 % (11.5-14.5) Immature Granulocyte % (Auto) 0.2 % Immature Granulocyte # (Auto) 0.02 K/uL (0.00-0.02) Anion Gap 8.0 mmol/L (3-11) Est Creatinine Clear Calc Drug Dose 95.5 ml/min Estimated GFR () 82.2 Estimated GFR (Non- 70.9 BUN/Creatinine Ratio 15.2 (10-20) Calcium Level 9.1 mg/dl (8.5-10.1) Total Bilirubin 0.3 mg/dl (0.2-1) Direct Bilirubin < 0.1 mg/dl (0-0.2) Aspartate Amino Transf (AST/SGOT) 17 U/L (15-37) Alanine Aminotransferase (ALT/SGPT) 28 U/L (12-78) Alkaline Phosphatase 93 U/L (45-117) Total Creatine Kinase 58 U/L (26-192) Creatine Kinase MB < 0.5 ng/ml (0.5-3.6) Creatine Kinase MB Ratio (0-3.0) Total Protein 8.1 gm/dl (6.4-8.2) Albumin 3.4 gm/dl (3.4-5.0) Lipase 105 U/L (73-393) Urine Test NEG (NEG) Laboratory results per my review. Medications Administered Medications (Trade) Dose Ordered Sig/Tanisha Route Start Time Stop Time Status Last Admin Dose Admin Albuterol Sulfate (Ventolin 0.5% 2.5MG/0.5ML Neb) 2.5 mg NOW STAT INH 12/17/17 17:57 12/17/17 17:59 DC 12/17/17 17:57 2.5 MG Sodium Chloride 1,000 ml @ 999 mls/hr Q1H1M STAT IV 12/17/17 17:57 12/17/17 18:57 DC 12/17/17 18:05 999 MLS/HR Sodium Chloride 1,000 ml @ 999 mls/hr Q1H1M STAT IV 12/17/17 19:36 12/17/17 20:36 DC 12/17/17 19:50 999 MLS/HR Morphine Sulfate (MoRPHine SULFATE INJ) 6 mg NOW STAT IV 12/17/17 19:36 12/17/17 19:37 DC 12/17/17 19:50 6 MG ECG Per My Interpretation Indication: chest pain Rate (beats per minute): 135 Rhythm: sinus tachycardia Findings: nonspecific-ST abn (Lateral), other (Normal [place]) ED Course ED COURSE: Vital signs were reviewed and showed Tachycardic and Hypertensive vitals. The patients medical record was reviewed The above diagnostic studies were performed and reviewed. ED treatments and interventions as stated above. 1753: The patient was evaluated in room B9. A complete history and physical examination was performed. 1756: Ordered Zofran 4 mg IV, Sodium Chloride 1000 mL @ 999 mL/hr IV, Albuterol Sulfate 2.5 mg INH. 1935: Ordered Zofran 4 mg IV, Morphine Sulfate 6 mg IV, Sodium Chloride 1000 mL @ 999 mL/hr IV. 1942: I discussed the case with Dr. Desirae De Leon [facility] Hospitalist. She will evaluate the patient for further treatment. 1944: Upon reevaluation, the patient is resting in bed.I discussed my findings with the patient and she understands and agrees with the treatment plan. Based on the patients age, coexisting illnesses, exam and lab findings the decision to treat as an inpatient was made. The patient remained stable while under my care. The patient will be evaluated for further management. Medical Decision Differential diagnoses includes but is not limited to acute coronary syndrome, myocardial infarction, pericarditis, pulmonary embolus, aortic dissection, pneumonia, pneumothorax, musculoskeletal, shingles, esophageal. Patient is a 37-year-old female who presents the ER following an EGD earlier today. Following the EGD she had coughing and a sore throat. She is given a neb treatment and discharge. CBC shows a mild leukocytosis. BMP along with LFTs, troponin and lipase was normal. Chest x-ray was unremarkable. Patient was persistently tachycardic on 2 L in the ER. Patient was febrile. She was given IV antibiotics. I do favor this is secondary to a pneumonitis although chest x-ray was clear. Patient has absolutely no other complaints. Her belly was benign. Patient and family were updated at bedside. Patient was discussed with internal medicine and admitted for further workup. Medication Reconcilliation Current Medication List: was personally reviewed by me Blood Pressure Screening Patient's blood pressure: Elevated blood pressure Referred to hospitalist. Consults Time Called: 1939 Consulting Physician: Dr. Desirae Frankel Hospitalist Returned Call: 1942 I discussed the case with Dr. Desirae Frankel Hospitalist. She will evaluate the patient for further treatment. Impression Primary Impression: Pneumonitis Additional Impression: Fever and chills Scribe Attestation The scribe's documentation has been prepared under my direction and personally reviewed by me in its entirety. I confirm that the note above accurately reflects all work, treatment, procedures, and medical decision making performed by me. Departure Information Dispostion Being Evaluated By Hospitalist Patient Instructions My [facility] Problem Qualifiers
[2017-12-18] MEDS ORDERED: DiphenhydrAMINE HCL 50 MG/ML VIAL IV STA (01:38)
[2017-12-18 01:43] VITALS: BP 131/84; PULSE 96; TEMP 36.3; O2SAT 95
[2017-12-18 02:57] LABS: BASO % 0.1 %; BASO ABS # 0.01 K/uL (0-0.2); EOS % 0.1 %; EOS ABS # 0.01 K/uL (0-0.5); HEMATOCRIT 35.3 % (37-47); HEMOGLOBIN 12.1 g/dL (12.0-16.0); IG# 0.03 K/uL (0.00-0.02); LYMPH % 14.6 %; LYMPH ABS # 1.94 K/uL (1.2-3.4); MEAN CELL VOLUME 84.7 fL (80-100); MEAN CORPUSCULAR HGB CONC 34.3 g/dl (32-36); MEAN PLATELET VOLUME 9.8 fL (7.4-10.4); MONO % 2.3 %; NEUT % 82.7 %; NEUT ABS # 10.98 K/uL (1.4-6.5); PLATELET COUNT 243 K/uL (130-400); RED CELL DISTRIBUTION WIDTH CV 15.4 % (11.5-14.5); RED CELL DISTRIBUTION WIDTH SD 47.4 fL (36.4-46.3); WHITE BLOOD COUNT 13.27 K/uL (4.8-10.8)
[2017-12-18 03:22] LABS: CALCIUM 8.3 mg/dl (8.5-10.1); CREATININE 0.7 mg/dl (0.60-1.20); POTASSIUM 3.8 mmol/L (3.5-5.1)
[2017-12-18 03:33] VITALS: BP 120/82; PULSE 88; TEMP 36.4; O2SAT 98
[2017-12-18] MEDS: AZTREONAM 2000 MG in DEXTROSE 5% 100 ML IV SCH ×2 (05:40→13:53)
[2017-12-18] MEDS ORDERED: LEVOTHYROXINE 200 MCG TAB PO SCH (06:00)
[2017-12-18 07:28] VITALS: BP 127/77; PULSE 79; TEMP 36.5; O2SAT 98
[2017-12-18] MEDS: TRINTELLIX~ORDER AWAITING ACTION SCH ×3 (08:00→16:00)
[2017-12-18] MEDS: [UNRECOGNIZED DRUG - REMARK] SCH ×3 (08:00→16:00)
[2017-12-18] MEDS: RANITIDINE HCL 150 MG TAB PO SCH (08:54)
[2017-12-18] MEDS ORDERED: ENOXAPARIN 40 MG/0.4 ML SYR SC SCH (09:00)
[2017-12-18] MEDS ORDERED: HYDROCODONE/ACETAMIN 5/325MG TAB PO SCH (09:00)
[2017-12-18] MEDS ORDERED: LACTOBACILLUS ACIDOPHILUS (FLORANEX) TAB PO SCH (09:00)
[2017-12-18] MEDS ORDERED: POLYETHYLENE (MIRALAX) 17 GM PACK PO SCH (09:00)
[2017-12-18] MEDS ORDERED: LISINOPRIL 2.5 MG TAB PO SCH (09:00)
[2017-12-18] MEDS: PREGABALIN 150 MG CAP PO SCH (09:02)
--- NOTE | 2017-12-18 10:43 | Gastrointestinal Consultation ---
Gastrointestinal Consultation Date of Consultation: Dec 18, 2017 Attending Physician: Tomi Consulting Physician: Lillian Reason for Consultation: fever after EGD History of Present Illness Patient is a 37 year old female w/ history listed below who presented to [facility] following EGD yesterday for fever, chest tightness and back pain. Pt was seen and evaluated, chart reviewed. Pt has a GI history of chronic constipation, upper abd pain, bloating and fullness she was evaluated by SHLOMO Duckworth as an outpatient who arranged EGD w/ biopsy for evaluation. Pt presented to [facility] yesterday for EGD. There was evidence of esophagitis, otherwise normal with stomach and small bowel biopsies. The pt did not have esophageal dilation. The pt tolerated the procedure well. When she woke up, per nursing staff she did have some coughing and hoarseness, however, felt well. She went home and noted persistent coughing. She developed chest fullness and pressure into her back w/ fever and chills. No nausea, vomiting, diarrhea. She came to ED. In the ED, troponin, chest XR and chest CT were negative. EKG w/ tachycardia rates 125. She was started on IV ABX for septic protocol, had a reaction to Keflex and Vancomycin w/ rash, no hives. Was started on Daptomycin. This AM she notes improvement of all her symptoms except for hoarseness. No fever, chills, CP, SOB , cough. VSS, WBC 13 EGD 12/18/17: LA Grade A reflux esophagitis. Normal stomach. Biopsied. Normal examined duodenum. Biopsied. Past Medical/Surgical History Medical Problems: (1) Abdominal cramping Status: Acute (2) Back pain Status: Acute (3) Bacteria in urine Status: Acute (4) Diarrhea Status: Acute (5) Diarrhea Status: Acute (6) Nausea Status: Acute (7) Pneumonitis Status: Acute Past Medical History: anxiety, depression, constipation, abd pain, abd bloating, fibromyalgia, HTN, hypothyroidism, IBS, lupus, JOHNSON, PCOS Past Surgical History: EGD, breast reduction, D&C, tonsillectomy Family History Cancer Diabetes mellitus FH: cancer FH: lung disease Heart disease Hypertension Social History Smoking Status: Never Smoker Alcohol Use: none Drug Use: none Marital Status: in relationship Housing Status: lives with family Occupation Status: unemployed Allergies Coded Allergies: Sulfa Antibiotics (Verified Allergy, Intermediate, rash,hives sob, 12/12/17) Vancomycin (Verified Allergy, Intermediate, rash, 12/18/17) Doxycycline (Verified Allergy, Unknown, Rash and Hives, 12/12/17) Reported by PT Meloxicam (Verified Allergy, Unknown, Rash and Hives, 12/12/17) Reported by PT Ondansetron (Verified Allergy, Unknown, Nausea/Vomiting, 12/12/17) Reported by PT Penicillins (Verified Allergy, Unknown, Rash,Hives and difficulty breathing., 12/12/17) Reported by PT Current Medications Home Meds and Scripts Medications Dose Route/Sig Max Daily Dose Days Date Category Dose Instructions Xanax (Alprazolam) 0.25 Mg Tab 1 Tab PO TID PRN 30 12/17/17 Reported Trintellix (Vortioxetine HBr) 10 Mg Tab 2 Tab PO QAM 12/12/17 Reported Only 5MG/325MG (Acetaminophen/Hydrocodone Bitart) Tab 2 Tablets PO QAM 09/27/17 Reported Only 5MG/325MG (Acetaminophen/Hydrocodone Bitart) Tab 1 Tablet PO HS 09/27/17 Reported Savella (Milnacipran Hcl) 50 Mg Tab 50 Mg PO BID 09/27/17 Reported Lyrica (Pregabalin) 150 Mg Cap 150 Mg PO BID 09/27/17 Reported Prochlorperazine Maleate 5 Mg Tab 5 Mg PO TID PRN 09/27/17 Reported Lisinopril 2.5 Mg Tab 2.5 Mg PO QAM 09/27/17 Reported Levothyroxine Sodium 200 Mcg Tab 200 Mcg PO QAM 12/23/15 Reported Probiotic (Probiotic Product) 1 Cap Cap 1 Cap PO QAM 06/07/15 Reported Polyethylene Glycol 3350 (Polyethylene) 527 Gm Soln 17 Gm PO DAILY PRN 06/07/15 Reported DISSOLVE IN WATER. Ranitidine HCl 150 Mg Tab 150 Mg PO BID 06/07/15 Reported Review of Systems Constitutional: No fever, No chills, No sweats, No weakness, No fatigue ENT: + sore throat, + problem reported (hoarseness), No unusual epistaxis, No trouble swallowing Respiratory: No cough, No sputum, No shortness of breath, No dyspnea on exertion Cardiac: No chest pain, No edema, No palpitations Abdomen: No pain, No nausea, No vomiting, No diarrhea, No constipation, No GI bleeding, No dysphagia, No odynophagia Skin: No rash, No itch, No bleeding, No jaundice Physical Exam Date Time Temp Pulse Resp B/P (MAP) Pulse Ox O2 Delivery O2 Flow Rate FiO2 12/18/17 07:28 36.5 79 19 127/77 (94) 98 Room Air 12/18/17 04:00 Room Air 12/18/17 03:33 36.4 88 18 120/82 (95) 98 Room Air 12/18/17 01:43 36.3 96 19 131/84 (100) 95 Room Air 12/18/17 00:00 Room Air 12/17/17 23:35 36.8 98 18 129/81 (97) 95 Room Air 12/17/17 22:13 36.9 112 18 122/79 93 Room Air 12/17/17 21:50 37.1 118 22 164/70 93 Room Air 12/17/17 19:33 37.9 130 18 134/84 94 Room Air 12/17/17 18:56 37.7 123 18 138/85 95 Room Air 12/17/17 18:11 139 12/17/17 17:56 Room Air 12/17/17 17:56 38.1 140 22 156/100 98 Room Air General Appearance: no apparent distress (pt completed breakfest, is upright in bed) Eyes: PERRL ENT: hearing grossly normal Neck: supple, trachea midline Respiratory/Chest: lungs clear, normal breath sounds, no respiratory distress, no accessory muscle use Cardiovascular: regular rate, rhythm, no edema, no gallop, no JVD Abdomen: normal bowel sounds, non tender, soft, no organomegaly Neurologic/Psych: alert, normal mood/affect, oriented x 3 Skin: normal color, no jaundice, warm/dry, no rash Laboratory Results Last 24 Hours Test 12/17/17 18:11 12/17/17 20:45 12/17/17 21:16 12/17/17 21:55 White Blood Count 13.06 K/uL Red Blood Count 4.53 M/uL Hemoglobin 13.0 g/dL Hematocrit 38.8 % Mean Corpuscular Volume 85.7 fL Mean Corpuscular Hemoglobin 28.7 pg Mean Corpuscular Hemoglobin Concent 33.5 g/dl Platelet Count 257 K/uL Mean Platelet Volume 10.1 fL Neutrophils (%) (Auto) 90.9 % Lymphocytes (%) (Auto) 5.7 % Monocytes (%) (Auto) 2.9 % Eosinophils (%) (Auto) 0.1 % Basophils (%) (Auto) 0.2 % Neutrophils # (Auto) 11.88 K/uL Lymphocytes # (Auto) 0.75 K/uL Monocytes # (Auto) 0.38 K/uL Eosinophils # (Auto) 0.01 K/uL Basophils # (Auto) 0.02 K/uL RDW Standard Deviation 47.6 fL RDW Coefficient of Variation 15.2 % Immature Granulocyte % (Auto) 0.2 % Immature Granulocyte # (Auto) 0.02 K/uL Sodium Level 136 mmol/L Potassium Level 4.1 mmol/L Chloride Level 105 mmol/L Carbon Dioxide Level 23 mmol/L Anion Gap 8.0 mmol/L Blood Urea Nitrogen 15 mg/dl Creatinine 1.00 mg/dl Est Creatinine Clear Calc Drug Dose 95.5 ml/min Estimated GFR () 82.2 Estimated GFR (Non- 70.9 BUN/Creatinine Ratio 15.2 Random Glucose 202 mg/dl Calcium Level 9.1 mg/dl Total Bilirubin 0.3 mg/dl Direct Bilirubin < 0.1 mg/dl Aspartate Amino Transf (AST/SGOT) 17 U/L Alanine Aminotransferase (ALT/SGPT) 28 U/L Alkaline Phosphatase 93 U/L Total Creatine Kinase 58 U/L Creatine Kinase MB < 0.5 ng/ml Creatine Kinase MB Ratio Troponin I < 0.015 ng/ml < 0.015 ng/ml Total Protein 8.1 gm/dl Albumin 3.4 gm/dl Lipase 105 U/L Urine Test NEG Prothrombin Time 10.1 SECONDS Prothromb Time International Ratio 1.0 Lactic Acid Level 1.8 mmol/L Thyroid Stimulating Hormone (TSH) 0.551 uIu/ml Influenza Type A (RT-PCR) Neg for Influ A Influenza Type B (RT-PCR) Neg for Influ B Test 12/18/17 02:45 White Blood Count 13.27 K/uL Red Blood Count 4.17 M/uL Hemoglobin 12.1 g/dL Hematocrit 35.3 % Mean Corpuscular Volume 84.7 fL Mean Corpuscular Hemoglobin 29.0 pg Mean Corpuscular Hemoglobin Concent 34.3 g/dl Platelet Count 243 K/uL Mean Platelet Volume 9.8 fL Neutrophils (%) (Auto) 82.7 % Lymphocytes (%) (Auto) 14.6 % Monocytes (%) (Auto) 2.3 % Eosinophils (%) (Auto) 0.1 % Basophils (%) (Auto) 0.1 % Neutrophils # (Auto) 10.98 K/uL Lymphocytes # (Auto) 1.94 K/uL Monocytes # (Auto) 0.30 K/uL Eosinophils # (Auto) 0.01 K/uL Basophils # (Auto) 0.01 K/uL RDW Standard Deviation 47.4 fL RDW Coefficient of Variation 15.4 % Immature Granulocyte % (Auto) 0.2 % Immature Granulocyte # (Auto) 0.03 K/uL Sodium Level 139 mmol/L Potassium Level 3.8 mmol/L Chloride Level 109 mmol/L Carbon Dioxide Level 23 mmol/L Anion Gap 7.0 mmol/L Blood Urea Nitrogen 12 mg/dl Creatinine 0.70 mg/dl Est Creatinine Clear Calc Drug Dose 136.1 ml/min Estimated GFR () 126.5 Estimated GFR (Non- 109.1 BUN/Creatinine Ratio 16.8 Random Glucose 129 mg/dl Calcium Level 8.3 mg/dl Impression Patient is a 37 year old female w/ fever, chills, congestion, CP, SOB 6 hours after EGD, in the ED w/ elevated WBC, fever, tachycardia. Imaging thus fat has been negative including chest XR and CT. She did not have dilation during her EGD, doubt GI source of her symptoms. She did have a lot of coughing w/ clear sputum following the EGD, perhaps she had some mild aspiration. This am she has complete resolution of her symptoms except for hoarseness. Plan - Fever unknown etiology - doubt GI source - likelyhood of microperforation quite low as dilation was not preformed - Chest XR negative - Chest CT negative - Follow up culture - Suggest acid suppression for esophagitis - Omeprazole 20 mg daily - OP GI follow up Please call with any questions or concerns. Thank you. Attg add: I interviewed and examined pt, reviewed chart and labs. Pt with possible microaspiration? She has fully recovered, and she be ok for d/c today. Please call with questions
[2017-12-18 11:58] VITALS: BP 139/92; PULSE 73; TEMP 36.5; O2SAT 96
[2017-12-18 16:00] VITALS: BP_SYST 120; BP_SYST 121; BP_DIAS 68; BP_DIAS 84; PULSE 78; PULSE 80; TEMP 36.4; O2SAT 91; O2SAT 97
[2017-12-18] MEDS ORDERED: OMEP20TA PO (18:10)
[2017-12-18] MEDS ORDERED: AZITTAB PO (18:10)
--- NOTE | 2017-12-18 18:12 | Discharge Summary ---
Discharge Summary Date of Service Dec 18, 2017. Discharge Summary Admission Date: Dec 17, 2017 at 21:05 Discharge Date: Dec 18, 2017 Discharge Disposition: Home Principal Diagnosis: ESOPHAGITIS /GERD /ASPIRATION PNEUMONITIS Procedures: CT chest with contrast: IMPRESSION: 1. Motion compromised examination. 2. There is no evidence of central pulmonary embolus in the main, lobar, or proximal segmental pulmonary arteries. 3. The lungs are clear. 4. Hepatic steatosis. 5. Splenomegaly. Consultations: [facility] Medication Reconciliation New Medications: Omeprazole (Omeprazole) 20 Mg Tab 1 TAB PO DAILY for 90 Days, #90 TAB 1 Refill Continued Medications: Alprazolam (Xanax) 0.25 Mg Tab 1 TAB PO TID PRN for Anxiety/Agitation for 30 Days, #90 TAB Hydrocodone/Acetaminophen 5MG/325MG ([place] 5MG/325MG) Tab 1 TABLET PO HS, TAB Hydrocodone/Acetaminophen 5MG/325MG ([place] 5MG/325MG) Tab 2 TABLETS PO QAM, TAB Levothyroxine Sodium (Levothyroxine Sodium) 200 Mcg Tab 200 MCG PO QAM Lisinopril (Lisinopril) 2.5 Mg Tab 2.5 MG PO QAM Milnacipran Hcl (Savella) 50 Mg Tab 50 MG PO BID Polyethylene (Polyethylene Glycol 3350) 527 Gm Soln 17 GM PO DAILY PRN for Constipation DISSOLVE IN WATER. Pregabalin (Lyrica) 150 Mg Cap 150 MG PO BID Probiotic Product (Probiotic) 1 Cap Cap 1 CAP PO QAM Prochlorperazine Maleate (Prochlorperazine Maleate) 5 Mg Tab 5 MG PO TID PRN for Nausea Ranitidine HCl (Ranitidine HCl) 150 Mg Tab 150 MG PO BID Vortioxetine HBr (Trintellix) 10 Mg Tab 2 TAB PO QAM Admission Information HPI (per Admitting provider): The patient is a 37-year-old female who presents to the emergency room via EMS with complaints of constant chest pain and abdominal pain beginning earlier today following an upper endoscopy. The patient states that after the procedure she began to cough uncontrollably and was unable to speak. She was given a DuoNeb treatment with inhalers and sent home. When she got home she continued to cough and developed chest pain trouble breathing and abdominal pain. She describes her chest pain as a soreness. She reports vomiting one time prior to arrival to the ER. Vomitus was described as mucousy without blood. She has no history of asthma or COPD. The endoscopy was performed for chronic bloating and abdominal pain. She reports her abdominal pain and chest pain are improved since the breathing treatment. She does report a headache likely secondary to the excessive coughing. The coughing and difficulty breathing have improved. She is not in respiratory distress at this time. She does report fevers and chills that began shortly after arriving home today. She reports that when she got home her shortness of breath became worse and her chest pain felt tighter wrapping around her shoulder blades. She denies a history of blood clot but does report a history of multiple spontaneous abortions. Review of system reveals chronic constipation. She denies diarrhea or blood per rectum. She reports irregular menstruation with last menstrual period in October 2017. She denies any vaginal discharge or urinary tract infection symptoms such as dysuria urgency or flank pain. Prior to the procedure she was in her normal state of health. Physical Exam (per Admitting): General Appearance: no apparent distress, + obese, + pertinent finding ( diaphoretic and flushed, no rash) Head: normocephalic, atraumatic Eyes: normal inspection, PERRL, sclerae normal ENT: normal ENT inspection, pharynx normal, + pertinent finding (cerumen bilaterally prevented visualization of TMs. ) Neck: supple, no adenopathy, trachea midline, + pertinent finding (no sinus TTP) Respiratory/Chest: chest non-tender, lungs clear, normal breath sounds, no respiratory distress, no accessory muscle use Cardiovascular: no edema, no gallop, no JVD, no murmur, normal peripheral pulses, + tachycardia Abdomen/GI: normal bowel sounds, soft, + tenderness (epigastric region) Back: normal inspection, no CVA tenderness Extremities/Musculoskelatal: normal inspection, no calf tenderness, no pedal edema, normal range of motion Neurologic/Psych: structural technician II-XII nml as tested, no motor/sensory deficits, alert , normal mood/affect, oriented x 3 Skin: normal color, warm/dry, no rash Hospital Course No complaint of shortness of breath, no cough, No fever or chills Vitals remained stable Evaluated by gastroenterology today Added PPI/omeprazole for acid reflux/esophagitis stable to be discharged home today Physical exam: General: Very pleasant young female no sign of any distress HEENT: Sclera nonicteric, pupils bilateral equal reactive to light, EOMI Heart: Regular S1-S2 no murmur or gallop Lungs: Clear to auscultate no wheezes or rales Abdomen: Soft nontender active bowel sounds Extremity: No lower extremity edema Neuro: Alert awake oriented 3, no focal neurological deficit Assessment and plan: Status post EGD yesterday for severe GERD symptom EGD showed mild esophagitis Postoperative procedure patient developed cough, shortness of breath Possible aspiration pneumonitis, in the setting of severe acid reflux symptoms CT chest with contrast:Shows no evidence of any PE Lungs clear No indication for antibiotic, no evidence of sepsis Added omeprazole 20 mg daily GERD symptoms: Appreciate input from GI EGD shows:There was evidence of esophagitis, otherwise normal with stomach and small bowel biopsies. Patient will be continued with PPI -No other GI testing/intervention needed Full code Disposition: Stable to be discharged home today sepsis : due to aspiration pneumonitis Total time spent on discharge = 35 mins This includes examination of the patient, discharge planning, medication reconciliation, and communication with other providers. Discharge Instructions Discharge Instructions Date of Service Dec 18, 2017. Admission Reason for Admission: Fever And Chills Discharge Discharge Diagnosis / Problem: ESOPHAGITIS /GERD /ASPIRATION PNEUMONITIS Discharge Goals Goal(s): Improve disease control, Diagnostic testing, Therapeutic intervention Activity Recommendations Activity Limitations: resume your previous activity . Instructions / Follow-Up Instructions / Follow-Up YOU WILL HAVE SCHEDULED APPOINTMENT IN A WEEK WITH DR SERNA FOR HOSPITAL FOLLOW UP OFFICE WILL CALL WITH DATE AND TIME Current Hospital Diet Patient's current hospital diet: Regular Diet Discharge Diet Recommended Diet: Regular Diet Pending Studies Studies pending at discharge: no Medical Emergencies . Who to Call and When: Medical Emergencies: If at any time you feel your situation is an emergency, please call 911 immediately. . Non-Emergent Contact Non-Emergency issues call your: Primary Care Provider . . "Provider Documentation" section prepared by Felicia Krishna. .
--- NOTE | 2017-12-23 06:19 | EDITING REQUIRED CODING QUERY ---
CODING QUERY To promote full compliance with coding requirements relating to patient care, provider participation is requested in all cases of gas line servicer uncertainty. Please assist us with the question(s) below: Coding Question(s): Patient 6 hrs s/p EGD admitted for sepsis d/t aspiration pneumonia. Please document the etiology of the postop aspiration pneumonia. Thank you. Refugio Molina [facility] Physician's Response(s): Possible aspiration pneumonia while recovering from Anesthesia Principal Diagnosis: "_that condition established after study, to be chiefly responsible for occasioning the admission of the patient to the hospital for care." Co-Existing Principal Diagnosis: "_when two or more diagnoses equally meet the criteria for principal diagnosis as determined by the circumstances of admission, diagnostic work up, and/or therapy provided, and the Alphabetic Index, Tabular List, or another coding guideline does not provide sequencing direction, any one of the diagnoses may be sequenced first." "When the physician has documented what appears to be a current diagnosis in the body of the record, but has not included the diagnosis in the final diagnostic statement, the physician should be asked whether the diagnosis should be added." (Source Coding [facility] 2 QTR90. p3-4)
== END 2017-12-18 19:00 | disposition home or self-care (01) | DRG 871 ==
LOC: EDBD 17:53 → C.EDB 17:55 → C.2T 21:05 → ENRESERV 21:21
PROVIDERS: ADMIT Hospitalist; ATTEND Hospitalist
DX: A41.9 Sepsis, unspecified organism (principal); J69.0 Pneumonitis due to inhalation of food and vomit; T36.8X5A Adverse effect of other systemic antibiotics, initial encounter; F41.8 Other specified anxiety disorders; G47.33 Obstructive sleep apnea (adult) (pediatric); I10 Essential (primary) hypertension; E03.9 Hypothyroidism, unspecified; R76.0 Raised antibody titer; K58.1 Irritable bowel syndrome with constipation; L27.1 Localized skin eruption due to drugs and medicaments taken internally; K22.70 Barrett's esophagus without dysplasia; M79.7 Fibromyalgia; K21.0 Gastro-esophageal reflux disease with esophagitis; Z83.3 Family history of diabetes mellitus; Z88.0 Allergy status to penicillin; Z88.1 Allergy status to other antibiotic agents; Z88.2 Allergy status to sulfonamides; Z88.8 Allergy status to other drugs, medicaments and biological substances; Z98.890 Other specified postprocedural states; Y92.239 Unspecified place in hospital as the place of occurrence of the external cause

== ENCOUNTER → 2017-12-17 | Day surgery (SDC) | payer OTHER ==
[2017-12-12 08:11] VITALS: BMI 51.0
[~2017-12-17] VITALS: Ht 157.5 cm; Wt 125.9 kg
[~2017-12-17] MED LIST changes: +ALBUT/IPRATROP 3MG/0.5MG NEB 3 ML VIAL INH SCH; +ALBUTEROL HFA INHALER 8.5 GM INH ONE; +ALPR0.25 PO; -ATROPINE SULFATE 0.1 MG/ML 5ML SYR IV PRN; +AZITTAB PO; -BUPIVACAINE 0.5 % 5 MG/1 ML PF 10ML VIAL ONE; -CELE1CAP30 PO; -DEXAMETHASONE SOD INJ 4 MG/ML VIAL ONE; +DICL50TA3 PO; -EpHEDrine SULFATE INJ 50 MG/ML AMP IV PRN; -FENTANYL CITRATE INJ 50 MCG/1 ML 2 ML VIAL ONE; -LACTATED RINGER'S 1000ML 1,000 ML IV SCH; -LIDO 2%/EPINEPHRINE 1:100000 20 ML VIAL INFIL ONE; -MIDAZOLAM HCL 1 MG/ML 2ML VIAL ONE; -NURSING VERBAL MED ORDER ONE; +OMEP20TA PO; -ONDANSETRON INJ 2 MG/ML 2 ML VIAL ONE; -OXYC1TAB3 PO; +SODIUM CHLORIDE 0.9% 500ML 500 ML IV ONE
[2017-12-17 10:06] VITALS: Ht 157.5 cm; Wt 125.9 kg
--- NOTE | 2017-12-17 11:02 | Endo History and Physical ---
History & Physical Date of Service: Dec 17, 2017. Chief Complaint: NAUSEA WITHOUT VOMITING, PAIN IN UPPER ABDOMEN Referring Physician: DR ABY SERNA History of Present Illness n/v Past Surgical History Hx Cardiac Surgery: No Hx Internal Defibrillator: No Hx Pacemaker: No Hx Abdominal Surgery: No Hx of Implantable Prosthesis: No Hx Post-Op Nausea and Vomiting: Yes Hx Cancer Surgery: No Hx Thoracic Surgery: No Hx Orthopedic: Yes (RIGHT KNEE ARTHROSCOPY, RT/LEFT FOOT FASCITIS) Hx Urinary Tract Surgery: No Family History None Social History Smoking Status: Never Smoker Hx Substance Use: No Hx Alcohol Use: Yes (OCCASIONALLY) Allergies Coded Allergies: Sulfa Antibiotics (Verified Allergy, Intermediate, rash,hives sob, 12/12/17) Doxycycline (Verified Allergy, Unknown, Rash and Hives, 12/12/17) Reported by PT Meloxicam (Verified Allergy, Unknown, Rash and Hives, 12/12/17) Reported by PT Ondansetron (Verified Allergy, Unknown, Nausea/Vomiting, 12/12/17) Reported by PT Penicillins (Verified Allergy, Unknown, Rash,Hives and difficulty breathing., 12/12/17) Reported by PT Current Medications Reported Home Medications Medications Dose Route/Sig Max Daily Dose Days Date Category Dose Instructions Trintellix (Vortioxetine HBr) 10 Mg Tab 2 Tab PO QAM 12/12/17 Reported Voltaren (Diclofenac Sodium) 50 Mg Tabec 50 Mg PO BID 12/12/17 Reported [place] 5MG/325MG (Acetaminophen/Hydrocodone Bitart) Tab 2 Tablets PO QAM 09/27/17 Reported [place] 5MG/325MG (Acetaminophen/Hydrocodone Bitart) Tab 1 Tablet PO HS 09/27/17 Reported Savella (Milnacipran Hcl) 50 Mg Tab 50 Mg PO BID 09/27/17 Reported Lyrica (Pregabalin) 150 Mg Cap 150 Mg PO BID 09/27/17 Reported Prochlorperazine Maleate 5 Mg Tab 5 Mg PO TID PRN 09/27/17 Reported Lisinopril 2.5 Mg Tab 2.5 Mg PO QAM 09/27/17 Reported Levothyroxine Sodium 200 Mcg Tab 200 Mcg PO QAM 12/23/15 Reported Probiotic (Probiotic Product) 1 Cap Cap 1 Cap PO QAM 06/07/15 Reported Polyethylene Glycol 3350 (Polyethylene) 527 Gm Soln 17 Gm PO DAILY PRN 06/07/15 Reported DISSOLVE IN WATER. Ranitidine HCl 150 Mg Tab 150 Mg PO BID 06/07/15 Reported Vital Signs Weight (Kilograms): 125.91 Height (Feet): 5 Height (Inches): 2 Date Time Temp Pulse Resp B/P (MAP) Pulse Ox O2 Delivery O2 Flow Rate FiO2 12/17/17 10:14 149/91 (110) 12/17/17 10:06 36.7 95 16 159/115 (130) 96 Room Air Physical Exam General Appearance: no apparent distress Respiratory/Chest: Auscultation: breath sounds normal Abdomen: Bowel Sounds: normal Assessment and Plan N/V - EGD
--- NOTE | 2017-12-17 11:48 | Anesthesiology Progress Note ---
Anesthesia Post Op Note Date & Time Dec 17, 2017 at 11:47 Vital Signs Pain Intensity: 0 Vital Signs Past 12 Hours Date Time Temp Pulse Resp B/P (MAP) Pulse Ox O2 Delivery O2 Flow Rate FiO2 12/17/17 11:42 71 16 136/85 (102) 100 Room Air 12/17/17 10:14 149/91 (110) 12/17/17 10:06 36.7 95 16 159/115 (130) 96 Room Air Notes Mental Status: alert / awake / arousable, participated in evaluation Pt Amnestic to Procedure: Yes Nausea / Vomiting: adequately controlled Pain: adequately controlled Airway Patency, RR, SpO2: stable & adequate BP & HR: stable & adequate Hydration State: stable & adequate Anesthetic Complications: no major complications apparent
[2017-12-17 12:00] VITALS: BP 122/85; O2SAT 96
[2017-12-17 12:11] VITALS: PULSE 84; O2SAT 98
--- NOTE | 2017-12-17 12:22 | GI REPORT ---
Procedure Date: 12/17/2017 11:03 AM Procedure: Upper GI endoscopy Indications: Abdominal pain Medicines: See the Anesthesia note for documentation of the administered medications Complications: No immediate complications. Estimated Blood Loss: Estimated blood loss: none. Procedure: Pre-Anesthesia Assessment: - ASA Grade Assessment: III - A patient with severe systemic disease. After obtaining informed consent, the endoscope was passed under direct vision. Throughout the procedure, the patient's blood pressure, pulse, and oxygen saturations were monitored continuously. The On-site loaner was introduced through the mouth, and advanced to the second part of duodenum. The upper GI endoscopy was accomplished without difficulty. The patient tolerated the procedure. Findings: LA Grade A (one or more mucosal breaks less than 5 mm, not extending between tops of 2 mucosal folds) esophagitis with no bleeding was found. The exam of the esophagus was otherwise normal. The entire examined stomach was normal. Biopsies were taken with a cold forceps for histology. The examined duodenum was normal. Biopsies were taken with a cold forceps for histology. Impression: - LA Grade A reflux esophagitis. - Normal stomach. Biopsied. - Normal examined duodenum. Biopsied. Recommendation: - Discharge patient to home. Lynne Snyder M.D. Lynne Snyder MD 12/17/2017 12:22:07 PM This report has been signed electronically. Note Initiated On: 12/17/2017 11:03 AM I attest to the content of the Intraoperative Record and orders documented therein, exceptions below
--- NOTE | 2017-12-17 12:23 | Discharge Instructions ---
Endoscopy Patient Instructions Date / Procedure(s) Performed Dec 17, 2017. EGD Allergy Information Coded Allergies: Sulfa Antibiotics (Verified Allergy, Intermediate, rash,hives sob, 12/12/17) Doxycycline (Verified Allergy, Unknown, Rash and Hives, 12/12/17) Reported by PT Meloxicam (Verified Allergy, Unknown, Rash and Hives, 12/12/17) Reported by PT Ondansetron (Verified Allergy, Unknown, Nausea/Vomiting, 12/12/17) Reported by PT Penicillins (Verified Allergy, Unknown, Rash,Hives and difficulty breathing., 12/12/17) Reported by PT Discharge Date / Findings Dec 17, 2017. Mild reflux esophagitis. Biopsies taken from duodenum and stomach. Medication Instructions Stopped Medication(s): STOPPED MOST MEDS FOR TODAYS PROCEDURE BY 1 DAY Restart Stopped Medication(s): Resume all stopped meds. Provider Instructions Activity Restrictions - No exercising or heavy lifting for 24 hours. - Do not drink alcohol the day of the procedure. - Do not drive a car or operate machinery until the day after the procedure. - Do not make any important decisions or sign important papers in 24 hours after the procedure. Following Day: - Return to full activity which may include returning to work/school. Diet Start your diet with liquids and light foods (jello, soup, juice, toast). Then eat your usual diet if not nauseated. Treatment For Common After Affects For mild abdominal pain, bloating, or excessive gas: - Rest - Eat lightly - Lie on right side Follow-Up Information Follow-up with DR ABY SERNA as scheduled Anesthesia Information What You Should Know You have had a procedure that required some medicine to reduce anxiety and discomfort. This treatment is called moderate sedation. After receiving the treatment, you may be sleepy, but you will be able to breathe on your own. The effects of the treatment may last for several hours. Follow these instructions along with Activity/Diet recommendations noted above: * Do NOT do anything where dizziness or clumsiness would be dangerous. * Rest quietly at home today, then you can be up and about tomorrow. * Have a responsible person stay with you the rest of today. * You may have had an I.V. today. If so, you may take the dressing off later today. Recommendations Call your doctor if: * Trouble breathing * Continuous vomiting for more than 24 hours * Temperature above 101 degrees * Severe abdominal pain or bloating * Pain not relieved by pain medicine ordered * There is increased drainage or redness from any incision * A large amount of rectal bleeding greater than 2-3 tablespoons. (If you had a polyp/s removed or have hemorrhoids, a small amount of blood - from the rectum is to be expected.) * You have any unanswered questions or concerns. IN THE EVENT OF A SERIOUS EMERGENCY, GO TO THE NEAREST EMERGENCY ROOM Your discharge instructions were prepared by provider Lynne Caceres. Patient Instructions Signature Page Quin Banuelos Patient (or Guardian) Signature/Date: I have read and understand the instructions given to me by my caregivers. Caregiver/RN/Doctor Signature/Date: The above-named patient and/or guardian has received patient instructions on this date. + Original Patient Signature Page (only) stays with chart. Please make copy for patient.
== END | disposition home or self-care (01) ==
LOC: C.GI 09:49
PROVIDERS: ATTEND Internal Medicine Gastroenterology
DX: R10.9 Unspecified abdominal pain (principal); K29.50 Unspecified chronic gastritis without bleeding; K21.0 Gastro-esophageal reflux disease with esophagitis; F41.9 Anxiety disorder, unspecified; F32.9 Major depressive disorder, single episode, unspecified; E66.01 Morbid (severe) obesity due to excess calories; Z68.43 Body mass index [BMI] 50.0-59.9, adult; Z88.0 Allergy status to penicillin; Z88.1 Allergy status to other antibiotic agents; Z88.2 Allergy status to sulfonamides; Z88.6 Allergy status to analgesic agent; Z98.890 Other specified postprocedural states